=== PATIENT | male | born 1990 | race Caucasian/White ===

== ENCOUNTER 2021-03-26 10:33 | Emergency (ER) | payer OTHER ==
[~2021-03-26] VITALS: Ht 180.3 cm; Wt 72.6 kg
[~2021-03-26 10:33] MED LIST: ASPIRIN325 PO; IBUPROFEN 800800 M1 PO; PERCOCET PO
[2021-03-26 11:04] LABS: ABSOLUTE LYMPHOCYTES 1.3 thou/uL (0.8-5.3); ABSOLUTE MONOCYTES 0.5 thou/uL (0.0-1.2); ABSOLUTE NEUTROPHILS 4.9 thou/uL (1.6-8.1); BASOPHILS 0.7 %; EOSINOPHILS 0.4 %; HEMOGLOBIN 15.3 gm/dL (14.0-18.0); LYMPHOCYTES 18.6 %; MCH 33.8 pg (26.0-34.0); MCHC 34.9 g/dL (28.0-37.0); MCV 96.9 fL (80.0-100.0); MONOCYTES 7.5 %; MPV 8.7 fl. (7.2-11.1); NUCLEATED RBCS 0 /100WBC; PLATELET COUNT* 252 thou/uL (150-400); POLYS 72.8 %; RBC 4.54 mil/uL (4.50-6.00); RDW-CV 11.9 % (10.5-14.5); WBC 6.8 thou/uL (4.0-11.0)
[2021-03-26 11:13] LABS: CALCIUM 9.1 mg/dL (8.5-10.1); CREATININE 0.9 mg/dL (0.6-1.3); POTASSIUM 4.2 mmol/L (3.5-5.1)
[2021-03-26 11:17] LABS: ALBUMIN 4.5 g/dL (3.4-5.0); TOTAL BILIRUBIN 1.4 mg/dL (<0.1-1.0); TOTAL PROTEIN 7.2 g/dL (6.4-8.2)
[2021-03-26 13:11] VITALS: BP 123/65
--- NOTE | 2021-03-26 14:45 | EKG ---
[place] [address] ELECTROCARDIOGRAM REPORT Name: SANDRA MCGRATH Room: [facility]#: [id number] Admission: 03/26/21 Attend Phys: Discharge: 03/26/21 Date of : 89 Date of Service: 03/26/21 1036 Report #: [id number] THIS REPORT FOR: //name// [facility] ED Test Date: 2021-03-26 Test Time: 10:36:53 Pat Name: SANDRA MCGRATH Department: Room: Gender: Manager City: [facility] [place] : 1990 Requested By: Fely White Order Number: [id number] MD: Mikey Silva Measurements Intervals [place] Rate: 83 P: 64 [place]: 116 QRS: 62 QRSD: 100 T: 39 QT: 369 QTc: 434 Interpretive Statements Sinus rhythm Borderline short [place] interval No previous ECG available for comparison Electronically Signed On 03-26-2021 14:45:42 CDT by Mikey Silva [email or web address] <ELECTRONICALLY SIGNED> By: Mikey Silva MD, [facility] 03/26/21 1445 103 Mikey Silva MD, FAC /EPI
== END 2021-03-26 13:12 | disposition home or self-care (01) ==
LOC: M.ERS 10:33
PROVIDERS: Nurse Practitioner Family
DX: R07.89 Other chest pain (principal)